=== PATIENT | male | born 1945 | race Two or more races ===

== ENCOUNTER 2024-05-26 09:29 | Outpatient (CLI) | payer MEDICARE, SELFPAY ==
[2024-05-26 10:58] LABS: Albumin Level 4.7 g/dl (3.5-5.0)
[2024-05-26 11:01] LABS: Alanine Aminotransferase 35 U/L (12-78); Aspartate Amino Transferase 33 U/L (17-59); Bilirubin,Unconjugated 0.7 mg/dL (0.0-1.1)
[2024-05-26 11:02] LABS: Alkaline Phosphatase 61 U/L (38-126); Bilirubin,Indirect 0.7 mg/dL (0.0-0.9); Bilirubin,Total 0.7 mg/dl (0.2-1.3); Chol/HDL Ratio 2.9 (1-3.5); Cholesterol 126 mg/dl (140-200); HDL Cholesterol 43 mg/dl (40-60); Triglycerides 146 mg/dl (30-150); VLDL Cholesterol 29 mg/dL (0-40)
[2024-05-26 11:13] LABS: Direct LDL Cholesterol 58.12 mg/dL (100-129)
== END 2024-05-26 23:59 | disposition home or self-care (01) ==
PROVIDERS: PCP Physician Assistant; Visit Provider Nurse Practitioner Family
DX: R42 Dizziness and giddiness (principal); R94.31 Abnormal electrocardiogram [ECG] [EKG]; R06.02 Shortness of breath; E78.1 Pure hyperglyceridemia; E78.00 Pure hypercholesterolemia, unspecified
CPT/HCPCS: 36415; 80061; 80076; 93225; 93227

== ENCOUNTER 2024-06-12 09:42 | Outpatient (CLI) | payer MEDICARE, SELFPAY ==
--- NOTE | 2024-06-12 | CA_ITS ---
FINAL REPORT CLINICAL HISTORY: Dizziness, Bradycardia COMPARISON: None FINDINGS: RIGHT CAROTID: CCA PSV -84 cm/sec ICA PSV -104 cm/sec ICA/CCA PSV ratio -1.2. Comments: Minimal plaque disease is noted. LEFTCAROTID: CCA PSV -111. cm/sec ICA PSV -116. cm/sec ICA/CCA PSV ratio -1.1 Comments: Minimal plaque disease is noted. Antegrade flow is seen within the vertebral arteries. IMPRESSION: Carotid stenosis classified less than 50% Reviewed, Interpreted and Dictated by Sukhi Diaz MD Transcribed by Minal Guevara Authenticated and [facility]
--- NOTE | 2024-06-12 | CA_ITS ---
APPROVED REPORT Exam: Pharmacologic Technologist: Juanita Orr Ht: 5 ft 3 in Wt: 198 lbs BSA: 1.93 m2 HR: 45 bpm BP: 133/77 mmHg Stress Test Details Test: Lexiscan Reason for pharmacologic stress test: physical limitation. HR Resting HR: 45 bpm Max Heart Rate (APMHR): 142 bpm Max HR Achieved: 57 bpm Target HR (85% APMHR): 121 bpm % of APMHR: 40 Recovery HR: 56 bpm BP Resting BP: 133.0/77.0 mmHg Max BP: 133.0/77.0 mmHg Recovery BP: 128.0/67.0 mmHg ECG Stress ECG Conclusion Symptoms: None. Arrhythmias/Ectopy: None. ST-T Changes: Unremarkable EKG with Lexiscan. Electronically signed by : Eden Mitchell MD 06/12/2024 15:19:48
--- NOTE | 2024-06-12 09:50 | CA_ITS ---
APPROVED REPORT EXAM: Comprehensive 2D, Doppler, and color-flow Echocardiogram Wood Inspector: April Estrada, RCS, RVS Ht: 5 ft 2 in Wt: 193lbs BSA: 1.88 HR: 43 bpm BP: 120/77 mmHg Rhythm: Bradycardia Indications: Bradycardia, Abn EKG, Dizziness, SOB, HLD 2D Dimensions IVSd 0.72 cm M: 0.6-1.2 LVEF (Visual) 68.20 % PWd 0.92 cm M: 0.6 - 1.2 LA Volume 76.00 mL LVDd 4.66 cm M: 4.2 - 5.9 LA Volume Index 40.385505 mL/m2 (M/F) 16-34 LVDs 2.89 cm M: 2.5 - 4.0 Left Atrium 2.85 cm M: 3.0 - 4.0 M-Mode Dimensions RVDd 2.63 cm (0.9-2.6) LA Diam 4.35 cm (1.9-4.0) LVDd 5.53 cm (3.5-5.7) LVDs 3.81 cm (3.5-5.7) IVSd 0.84 cm (0.6-1.1) PWd 0.92 cm (0.6-1.1) EF (Teich) 58.30% EPSs 0.57 cm FS 31.10% EDV (Teich) 149.30 mL TAPSE 2.09 (<1.7) ESV (Teich) 62.30 mL LV Diastology E Decel Time 257 (160-240 msec) E/A Ratio 1.03 MED A' 8.90 cm/s LAT A' 13.40 cm/s Aortic Valve AoV Peak Liban. 168.0 (50-130 cm/s) AI PHT 987.00 ms AO Peak GR. 11.30 mmHg AO Mean GR. 5.60 (<5 mmHg) AO VTI 40.3 (18-25 cm) LORENZA (VTI) 2.08 (2.5-4.5 cm2) Mitral Valve MV A Velocity 78.0 (40-130 cm/s) E/A Ratio 1.03 MV Mean Gr. 0.80 (<2mmHg) Tricuspid Valve TR P. Velocity 190.00 cm/s RAP Estimate 10.00 mmHg RVSP 24.50 mmHg Left Ventricle The left ventricle is normal size. The left ventricular systolic function is normal. The left ventricular ejection fraction is within the normal range. Increased LV wall thickness. There is normal LV segmental wall motion. The left ventricular diastolic function is normal. LVEF is 55%. Right Ventricle Right ventricle is mildly dilated. The right ventricular systolic function is normal. Atria The left atrium size is normal. The right atrium size is normal. There is no Doppler evidence of interatrial shunt. Aortic Valve The aortic valve is mildly thickened. Mild aortic regurgitation. There is no aortic valvular stenosis. Mitral Valve The mitral valve is normal in structure. No evidence of mitral valve stenosis. Mild mitral regurgitation. Tricuspid Valve Tricuspid valve is grossly normal in structure and function. Trace tricuspid regurgitation. There is insufficient TR jet to estimate RVSP. Trace pulmonic regurgitation. Pulmonic Valve The pulmonary valve is normal in structure. Great Vessels The aortic root is normal in size. IVC is normal in size and collapses >50% with inspiration. Pericardium There is no pericardial effusion. Other Information Study Quality: Fair Conclusion Normal biventricular systolic function. Mild RV dilation. Mild AI, mild MR. Electronically signed by : Eden Mitchell MD 06/21/2024 22:48:53
--- NOTE | 2024-06-12 10:47 | NM_ITS ---
APPROVED REPORT Exam: Nuclear Stress Test Indication: Dizziness, HTN, High cholesterol Patient Location: Outpatient Stress Tech: Juanita Gifford ME Tech:Genoveva Gregory, ARRT, RT (R)(N) Ht: 5 ft 0 in Wt: 190 lbs HR: 45 bpm BP: 133/77 mmHg BSA: 1.83 m2 TID: 1.02 History: Dizziness, HTN, High cholesterol Procedure: Patient received 0.4 mg of intravenous AdenosineLexiscan, resting heart rate 45 bpm, resting blood pressure 133/77 mmHg, with Lexiscan maximum heart rate achieved was 57 bpm which is % of the maximum predicted heart rate and blood pressure was 107/64 mmHg. With Lexiscan, patient denied any complaint of chest pain. Cardiac Stress and Resting SPECT Images: Cardiac Stress and Resting SPECT images were obtained using technetium 99m Myoview 30.1 mCi stress and 10.72 mCi at rest. Resting and stress imaging in supine and prone positions demonstrate a medium sized, moderate, partially reversible perfusion defect in the basal inferior LV wall. Gated imaging demonstrates normal global LV systolic function. There is mild hypokinesis of the basal inferior LV wall. LVEF is calculated at 54%. Conclusion: Medium sized, moderate, partially reversible perfusion defect in the basal inferior LV wall. Gated imaging demonstrates normal global LV systolic function. There is mild hypokinesis of the basal inferior LV wall. LVEF is calculated at 54%. Electronically signed by : Eden Mitchell MD 06/12/2024 15:17:35
[2024-06-12] MEDS: SODIUM CHLORIDE 0.9% 10ML SYR (RAD ONLY) 10 ML IV ×2 (13:26)
[2024-06-12] MEDS: ISOTOPE MYOVIEW (PER STUDY) 1 DOSE IV (13:26)
[2024-06-12] MEDS: REGADENOSON 0.4MG/5ML SYRINGE 0.4 MG IV (13:26)
== END 2024-06-12 23:59 | disposition home or self-care (01) ==
LOC: RT 09:43
PROVIDERS: PCP Physician Assistant; Visit Provider Physician Assistant
DX: I51.7 Cardiomegaly (principal); I34.0 Nonrheumatic mitral (valve) insufficiency; I35.1 Nonrheumatic aortic (valve) insufficiency; R94.31 Abnormal electrocardiogram [ECG] [EKG]; R06.02 Shortness of breath; R42 Dizziness and giddiness
CPT/HCPCS: 78452; 93017; 93018; 93306; 93880; A9502; J2785

== ENCOUNTER 2024-07-01 13:45 | Outpatient (CLI) | payer MEDICARE, SELFPAY | END 2024-07-01 23:59 | disposition home or self-care (01) | LOC: RT 13:49 | PROVIDERS: PCP Physician Assistant; Visit Provider Nurse Practitioner Family | DX: R42 Dizziness and giddiness (principal); R00.1 Bradycardia, unspecified; I20.89 Other forms of angina pectoris; R94.39 Abnormal result of other cardiovascular function study | CPT/HCPCS: 93270 ==

== ENCOUNTER 2024-11-04 13:00 | Outpatient (RCR) | payer MEDICARE, SELFPAY ==
--- NOTE | 2024-10-21 15:02 | [facility].PTOPEV ---
PT Outpatient Evaluation Rehab PT Outpatient Evaluation Start: 10/21/24 13:56 Freq: Status: Active Protocol: Document 10/21/24 14:38 PHORNE (Rec: 10/21/24 15:02 PHORNE [id number]) E-signed By Teodoro Willams, PT Outpatient Therapy Subjective History Subjective History This is the initial PT eval for Ike Eldridge, 78 yom who presents with c/o vertigo x ~ 1 yr overall with insidious onset of symptoms. He reports symptoms occur with bending forward, or rolling to either side. He reports symptoms last less than 15 sec and are not associated with any nausea. He reports some hearing loss in B ears, which is chronic, but no c/o pain ir discomfort in his ears, sinuses, or neck. Chief Complaint Other Level of pain today 0 (0-10) Miscellaneous Dx PT Eval Objective Objective Occulomotor testing: head Shake nystagmus, VOR cancellation, and smooth pursuit testing all normal. [place]-Hallpike testing: Positive upbeating nystagmus noted to Left and Right sides with appropriate rotational components on each side. 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 L side nystagmus was more pronounced anf took longer to fatigue than the right side. For this reason L side PSC canalithiasis treatment was initiated with ELECTRONIC EQUIPMENT MAINT TECH performed to the L side. 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 Skilled therapy is indicated in order to improve pts vertigo symptoms in order to improve his QOL. Clinical Impression Consistent with Yes Diagnosis PT Patient Goals PT Patient Goals PT Short Term In 2 wks pt will: Patient Goals 1) express minimal episodes of vertigo with laying in bed. PT Stone Grader Patient In 4 wks pt will: Goals 1) express NO episodes of vertigo with laying in bed. 2) be independent with all HEP for vertigo treatment. Outpatient Therapy Plan of Care Treatment Plan May Include Therapeutic Exercise Yes Including Home Exercise Program Neuromuscular Re- Yes education ADL/Self Care Yes Education Eval/Re-Eval Yes Canalith Yes Repositioning Technique Frequency Times per week 1 Duration Number of Weeks 4 Addendums This patient is a No candidate for social or vocational rehab ? Patient/Guardian Yes verbally acknowledges understanding of treatment program and consents to further treatment? Patient/Guardian Yes verbally acknowledges understanding of diagnosis, prognosis and goals for treatment? Eval Complexity PT Charges 95255 - Moderate Complexity Shoulder/Elbow Eval Shoulder Objective Measurements Elbow Objective Measurements PHYSICIAN CERTIFICATION: I certify the specified therapy services for Ike Infantes are required, authorized, and reviewed every 30 days.
== END 2024-11-04 23:59 | disposition home or self-care (01) ==
LOC: PT 13:00
PROVIDERS: PCP Physician Assistant; Visit Provider Nurse Practitioner
DX: R42 Dizziness and giddiness (principal)
CPT/HCPCS: 95992; 97162

== ENCOUNTER 2024-12-15 14:21 | Outpatient (CLI) | payer MEDICARE, SELFPAY | END 2024-12-15 23:59 | disposition home or self-care (01) | LOC: RT 14:22 | PROVIDERS: PCP Physician Assistant; Visit Provider Specialist | DX: I49.1 Atrial premature depolarization (principal); I47.19 Other supraventricular tachycardia; I49.3 Ventricular premature depolarization; I49.8 Other specified cardiac arrhythmias; R94.39 Abnormal result of other cardiovascular function study; I20.89 Other forms of angina pectoris; R00.1 Bradycardia, unspecified | CPT/HCPCS: 93270; 93272 ==